=== PATIENT | female | born 1960 | race Caucasian/White ===

== ENCOUNTER 2021-04-28 08:05 | Day surgery (SDC) | payer BC ==
[~2021-04-28 08:05] MED LIST: Lactated Ringers 1,000 ML IV SCH; Sodium Chloride 0.9% 10 ML Syringe FLUSH PRN; Sodium Chloride 0.9% 2.5 ML Syringe FLUSH PRN; Sodium Chloride 0.9% 20 ML SDV IV PRN
[2021-04-28] MEDS ORDERED: ceFAZolin 2 GM in Premix Bag 1 BAG IV ONE (08:20)
[2021-04-28] MEDS ORDERED: fentaNYL 100 MCG/2 ML SDV IVPUSH PRN (08:29)
[2021-04-28] MEDS ORDERED: Albuterol 0.083% 2.5 MG/3 ML Neb Soln NEB PRN (08:29)
[2021-04-28] MEDS ORDERED: Naloxone 0.4 MG/ML SDV IVPUSH PRN (08:29)
[2021-04-28] MEDS ORDERED: Morphine 2 MG/ML SYRINGE IVPUSH PRN (08:29)
[2021-04-28] MEDS ORDERED: Ondansetron 4 MG/2 ML SDV IVPUSH PRN (08:29)
[2021-04-28] MEDS ORDERED: HYDROmorphone 1 MG/ML Syringe IVPUSH PRN (08:29)
[2021-04-28] MEDS ORDERED: Metoclopramide 10 MG/2 ML SDV IVPUSH PRN (08:29)
--- NOTE | 2021-04-28 08:31 | PCM.PREANE ---
Preanesthetic Assessment - Anesthesia/Transfusion/Family Hx Anesthesia History: Prior Anesthesia Without Reaction Transfusion History: No Prior Transfusion(s) - Review of Systems General: No Symptoms Pulmonary: No Symptoms Cardiovascular: No Symptoms Gastrointestinal: No Symptoms Neurological: No Symptoms Other: Reports: None - Physical Assessment NPO Status Date: 04/28/21 NPO Status Time: 00:00 Vital Signs: Last Vital Signs Temp 97.2 F 04/28/21 08:19 Pulse 72 04/28/21 08:19 Resp 14 04/28/21 08:19 BP 144/87 H 04/28/21 08:19 Pulse Ox 97 04/28/21 08:19 Height: 4 ft 11 in Weight: 132 lb ASA Class: 2 Mental Status: Alert & Oriented x3 Airway Class: Mallampati = 1 Dentition: Reports: Normal Dentition Thyro-Mental Finger Breadths: 3 Mouth Opening Finger Breadths: 3 ROM/Head Extension: Full Lungs: Clear to Auscultation, Normal Respiratory Effort Cardiovascular: Regular Rate, Regular Rhythm - Allergies Allergies/Adverse Reactions: Allergies Allergy/AdvReac Type Severity Reaction Status Date / Time No Known Allergies Allergy Verified 04/22/21 08:44 - Acknowledgements Anesthesia Type Planned: General Anesthesia Pt an Appropriate Candidate for the Planned Anesthesia: Yes Alternatives and Risks of Anesthesia Discussed w Pt/Guardian: Yes Pt/Guardian Understands and Agrees with Anesthesia Plan: Yes PreAnesthesia Questionnaire HEENT History: Reports: None Cardiovascular History: Reports: Hypertension Respiratory History: Reports: None Gastrointestinal History: Reports: Other (See Below) Other Gastrointestinal History: gallstones, occasional heartburn Genitourinary History: Reports: None 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: Musculoskeletal History: Reports: RA Neurological History: Reports: None Psychiatric History: Reports: None Endocrine/Metabolic History: Reports: Osteopenia Hematologic History: Reports: None Immunologic History: Reports: None Oncologic (Cancer) History: Reports: Breast Dermatologic History: Reports: None - Past Surgical History Head Surgeries/Procedures: Reports: None HEENT Surgical History: Reports: Tonsillectomy Cardiovascular Surgical History: Reports: None Respiratory Surgical History: Reports: None GI Surgical History: Reports: Colonoscopy Female Surgical History: Reports: Breast Biopsy, Breast Implant, Section Endocrine Surgical History: Reports: None Neurological Surgical History: Reports: None Musculoskeletal Surgical History: Reports: None Oncologic Surgical History: Reports: Biopsy of Breast Dermatological Surgical History: Reports: None - SUBSTANCE USE Tobacco Use Status *Q: Never Tobacco User Days Per Week of Alcohol Use: 7 Number of Drinks Per Day: 1 Total Drinks Per Week: 7 - HOME MEDS Home Medications: Home Meds Atenolol/Chlorthalidone [Atenolol-Chlorthalidone 50-25] 0.5 tab PO DAILY 04/22/21 [History] Calcium/D3/Mag Ox/Commission Clerk/Maurice/Zn [Caltrate+D3 Plus Mineral Minis] 1 tab PO DAILY 04/22/21 [History] Hydroxychloroquine Sulfate 300 mg PO DAILY 04/22/21 [History] - CURRENT (IN HOUSE) MEDS Current Meds: Current Medications Lactated Ringer's (Ringers, Lactated) 1,000 mls @ 125 mls/hr IV ASDIRECTED JOHAN Last Admin: 04/28/21 08:23 Dose: 125 mls/hr Documented by: Cefazolin Sodium/Dextrose 2 gm (/ Premix) 50 mls @ 100 mls/hr IV ONETIME ONE Stop: 04/28/21 08:49 Sodium Chloride (Sodium Chloride 0.9% 10 Ml Syringe) 10 ml FLUSH ASDIRECTED PRN PRN Reason: Keep Vein Open Sodium Chloride (Sodium Chloride 0.9% 2.5 Ml Syringe) 2.5 ml FLUSH ASDIRECTED PRN PRN Reason: Keep Vein Open Sodium Chloride (Sodium Chloride 0.9% 20 Ml Sdv) 10 ml IV ASDIRECTED PRN PRN Reason: IV Use
[2021-04-28] MEDS ORDERED: Midazolam 1 MG/ML 2 ML SDV ONE ×2 (08:58→09:07)
[2021-04-28] MEDS ORDERED: fentaNYL 100 MCG/2 ML SDV ONE ×2 (08:58→09:07)
[2021-04-28] MEDS ORDERED: Propofol 200 MG/20 ML SDV ONE ×2 (08:58→09:07)
[2021-04-28] MEDS ORDERED: Dexamethasone 4 MG/ML 5 ML MDV ONE (09:09)
[2021-04-28] MEDS ORDERED: Ondansetron 4 MG/2 ML SDV ONE (09:09)
[2021-04-28 09:42] LABS: CARBON DIOXIDE,CO2 28.8 mmol/L (21.0-32.0); POTASSIUM,K 3.4 mmol/L (3.5-5.1)
[2021-04-28] MEDS ORDERED: Heparin Sodium 100 Units/ML 3 ML Syringe ONE (09:51)
[2021-04-28] MEDS ORDERED: Bupivacaine 0.5% 10 ML SDV ONE (09:51)
[2021-04-28] MEDS ORDERED: Lidocaine 1% 20 ML MDV ONE (09:51)
[2021-04-28] MEDS ORDERED: Iopamidol 408 MG/ML 20 ML SDV ONE (09:52)
[2021-04-28] MEDS ORDERED: Octyl 2-Cyanoacrylate 1 Tube ONE (09:52)
[2021-04-28] MEDS ORDERED: ePHEDrine 50 MG/ML SDV ONE (10:30)
[2021-04-28] MEDS ORDERED: Ketorolac 30 MG/ML SDV ONE (10:44)
--- NOTE | 2021-04-28 11:10 | PCM.POSTAN ---
POST ANESTHESIA ASSESSMENT - MENTAL STATUS Mental Status: Alert, Oriented - VITAL SIGNS Vital Signs: Last Vital Signs Temp 97.2 F 04/28/21 08:19 Pulse 72 04/28/21 08:19 Resp 14 04/28/21 08:19 BP 144/87 H 04/28/21 08:19 Pulse Ox 97 04/28/21 08:19 - RESPIRATORY Respiratory Status: Respiratory Rate WNL, Airway Patent, O2 Saturation Stable - CARDIOVASCULAR CV Status: Pulse Rate WNL, Blood Pressure Stable - GASTROINTESTINAL GI Status: No Symptoms - POST OP HYDRATION Hydration Status: Adequate & Stable
--- NOTE | 2021-04-28 11:11 | PCM48HPAN ---
Post Anesthesia Note - EVALUATION WITHIN 48HRS OF ANESTHETIC Vital Signs in Normal Range: Yes Patient Participated in Evaluation: Yes Respiratory Function Stable: Yes Airway Patent: Yes Cardiovascular Function Stable: Yes Hydration Status Stable: Yes Pain Control Satisfactory: Yes Nausea and Vomiting Control Satisfactory: Yes Mental Status Recovered: Yes Vital Signs: Last Vital Signs Temp 97.2 F 04/28/21 08:19 Pulse 72 04/28/21 08:19 Resp 14 04/28/21 08:19 BP 144/87 H 04/28/21 08:19 Pulse Ox 97 04/28/21 08:19
--- NOTE | 2021-04-28 11:21 | PCM.OPNOTE ---
- General Post-Op/Procedure Note Date of Surgery/Procedure: 04/28/21 Operative Procedure(s): RIght internal jugular port a cath placement Findings: port a cath in right IJ Pre Op Diagnosis: Breast cancer Post-Op Diagnosis: Breast cancer Anesthesia Technique: General LMA Primary Surgeon: Jackie Aguilar Fluid Replacement, Intraop: 1,000 EBL in mLs: 10 Condition: Good
--- NOTE | 2021-04-28 12:14 | CR ---
Indication: Port catheter placement. Technique: Chest 1 view. Comparison: None. Findings/Impression: Cardiovascular and mediastinum: Heart size and vasculature are normal in caliber and appearance. Right-sided port catheter is in satisfactory position with the tip in the mid to lower SVC. Lungs and pleural space: Lungs are clear. No sign of infiltrate or mass. No sign of pleural effusion. No pneumothorax. Bones and soft tissues: No acute findings. Dictated by Curly Albarado MD @ 04/28/2021 12:13:30 PM (Electronically Signed)
--- NOTE | 2021-04-28 13:58 | CR ---
INDICATION: Port placement TECHNIQUE: Intraoperative C-arm fluoroscopy. IMPRESSION: Intraoperative C-arm fluoroscopy was provided. Fluoroscopy time 13.3 seconds. Two images were captured. Dictated by Celio Meehan MD @ 04/28/2021 1:57:56 PM (Electronically Signed)
--- NOTE | 2021-04-28 15:22 | OR ---
SURGEON: JACKIE AGUILAR MD DATE OF PROCEDURE: 04/28/2021 PREOPERATIVE DIAGNOSIS: Breast cancer. POSTOPERATIVE DIAGNOSIS: Breast cancer. PROCEDURE PERFORMED: Right internal jugular Port-A-Cath placement. PRIMARY SURGEON: Jackie Aguilar MD ANESTHESIA: General LMA. FLUIDS: 1000 mL crystalloid. ESTIMATED BLOOD LOSS: 10 mL. FINDINGS: Right internal jugular Port-A-Cath placed without difficulty. COMPLICATIONS: None. INDICATIONS: The patient is a 60-year-old female who presented to clinic with a new diagnosis of breast cancer. She was in need of a Port-A-Cath placement for chemotherapy. I explained the procedure, expected perioperative course, and the risks. She verbalized understanding and wishes to proceed. PROCEDURE IN DETAIL: The patient was brought in to the OR and placed on the OR table and in supine position. A time-out was completed verifying the patient's name, age, date of , allergies, and procedure to be performed. General LMA anesthesia was induced. A shoulder roll was placed under the patient's shoulders and both arms were tucked to the patient's side. An ultrasound was used to confirm the anatomy of the right side of the neck. The neck and chest were then prepped and draped in usual standard fashion. The patient was placed into Trendelenburg position. A sterile ultrasound probe was used to identify the right internal jugular vein. I anesthetized the area overlying the right internal jugular vein with a 1:1 mixture of 0.5% Marcaine plain and 1% lidocaine plain. I also anesthetized the Port-A-Cath site on the anterior chest wall as well as the tubing tract. Using ultrasound guidance, I placed a guide needle into the right internal jugular vein. A good return of venous blood was noted. A guidewire was placed down the vein into the superior vena cava. The placement of the guidewire was verified with C-arm. The guidewire was then secured to the drapes. I turned my attention to the right anterior chest wall. A 3 cm incision was made two fingerbreadths below the lateral right clavicle using a 15- blade. Cautery was used to dissect down to level subcutaneous fat. A subcutaneous pocket was then created for the Port-A-Cath device. I then tunneled the catheter tubing from the Port-A-Cath device site on the chest wall up to the neck. A vascular dilator and sheath were then used to dilate up the catheter tract under fluoroscopic guidance. The dilator and guidewire were removed. The catheter tubing was placed down the sheath into the superior vena cava. The sheath was peeled away. Using fluoroscopy, I guided the tip of the catheter into the distal SVC. The catheter tubing was accessed and I had a good return of venous blood. It was then flushed with injectable saline. The catheter tubing was trimmed to 25 cm and placed on the Port-A-Cath device. The port was placed into the chest wall. Again, I accessed the port with a Javeir needle and had good return of venous blood. The system was then flushed with normal saline. I secured the Port-A-Cath device inside the chest wall pocket with 2-0 Prolene sutures on either side of the Port-A-Cath device. The pocket was then closed with interrupted 3-0 Vicryl sutures in the subcutaneous fat and a running 4-0 Monocryl stitch in the skin. The insertion site on the neck was closed with interrupted 4-0 Monocryl suture. Dermabond was applied. I then accessed the catheter on the skin with a 1 inch Javier needle. A good return of venous blood was noted. I then locked the device with 5 mL of heparinized saline. The device was left accessed and sterile dressings were applied. The patient tolerated the procedure well and was taken to the PACU in stable condition. Postoperative chest x-ray showed no acute complications. DALLIN LOO /[id number]
== END 2021-04-28 12:29 | disposition home or self-care (01) ==
LOC: MW.SDS 08:05
PROVIDERS: ATTEND Surgery
DX: C50.912 Malignant neoplasm of unspecified site of left female breast (principal); I10 Essential (primary) hypertension; E78.00 Pure hypercholesterolemia, unspecified; M85.80 Other specified disorders of bone density and structure, unspecified site; M06.9 Rheumatoid arthritis, unspecified; N28.1 Cyst of kidney, acquired; Z79.899 Other long term (current) drug therapy; Z98.890 Other specified postprocedural states
CPT/HCPCS: 36415; 36561; 71045; 76000; 80053; 85025; A9270; J0690; J1100; J1885; J2250; J2405; J2704; J3010; J3490; J7120; 00532; C1788; J1642; Q9966

== ENCOUNTER 2021-06-17 06:05 | Day surgery (SDC) | payer BC ==
[2021-06-17] MEDS ORDERED: Bupivacaine 0.5% 10 ML SDV ONE (07:25)
[2021-06-17] MEDS ORDERED: Octyl 2-Cyanoacrylate 1 Tube ONE (07:25)
[2021-06-17] MEDS ORDERED: Iopamidol 408 MG/ML 20 ML SDV ONE (07:25)
[2021-06-17] MEDS ORDERED: Heparin Sodium 100 Units/ML 3 ML Syringe ONE (07:25)
[2021-06-17] MEDS ORDERED: Metoclopramide 10 MG/2 ML SDV IVPUSH PRN (07:33)
[2021-06-17] MEDS ORDERED: Albuterol 0.083% 2.5 MG/3 ML Neb Soln NEB PRN (07:33)
[2021-06-17] MEDS ORDERED: Naloxone 0.4 MG/ML SDV IVPUSH PRN (07:33)
[2021-06-17] MEDS ORDERED: fentaNYL 100 MCG/2 ML SDV IVPUSH PRN (07:33)
[2021-06-17] MEDS ORDERED: HYDROmorphone 1 MG/ML Syringe IVPUSH PRN (07:33)
[2021-06-17] MEDS ORDERED: Morphine 2 MG/ML SYRINGE IVPUSH PRN (07:33)
[2021-06-17] MEDS ORDERED: Ondansetron 4 MG/2 ML SDV IVPUSH PRN (07:33)
[2021-06-17] MEDS ORDERED: Dexmedetomidine 200 MCG/2 ML SDV ONE (07:39)
[2021-06-17] MEDS ORDERED: Propofol 200 MG/20 ML SDV ONE (07:40)
[2021-06-17] MEDS ORDERED: Sodium Chloride 0.9% 2.5 ML Syringe FLUSH PRN (07:45)
[2021-06-17] MEDS ORDERED: Sodium Chloride 0.9% 10 ML Syringe FLUSH PRN (07:45)
[2021-06-17] MEDS ORDERED: ceFAZolin 2 GM in Premix Bag 1 BAG IV ONE (07:45)
[2021-06-17] MEDS ORDERED: Sodium Chloride 0.9% 20 ML SDV IV PRN (07:45)
[2021-06-17] MEDS ORDERED: Lactated Ringers 1,000 ML IV SCH (07:45)
[2021-06-17] MEDS ORDERED: ePHEDrine 50 MG/ML SDV ONE (08:13)
== END 2021-06-17 09:39 | disposition home or self-care (01) ==
LOC: MW.SDS 06:05
PROVIDERS: ATTEND Surgery
DX: T82.514A Breakdown (mechanical) of infusion catheter, initial encounter (principal); C50.912 Malignant neoplasm of unspecified site of left female breast; F41.9 Anxiety disorder, unspecified; I10 Essential (primary) hypertension; G47.00 Insomnia, unspecified; E78.00 Pure hypercholesterolemia, unspecified; Z79.899 Other long term (current) drug therapy; Z98.890 Other specified postprocedural states; Z01.812 Encounter for preprocedural laboratory examination; Z20.822 Contact with and (suspected) exposure to COVID-19
CPT/HCPCS: 36576; 87635; A9270; J0690; J1642; J3490; 00532; J2704; Q9966; U0002

== ENCOUNTER 2022-01-23 11:02 | Day surgery (SDC) | payer BC ==
[~2022-01-23 11:02] MED LIST changes: -Lactated Ringers 1,000 ML IV SCH; +ceFAZolin 1 GM in Premix Bag 1 BAG IV ONE
[2022-01-23] MEDS ORDERED: Lactated Ringers 1,000 ML IV SCH (11:45)
[2022-01-23] MEDS ORDERED: Naloxone 0.4 MG/ML SDV IVPUSH PRN (12:08)
[2022-01-23] MEDS ORDERED: HYDROmorphone 1 MG/ML Syringe IVPUSH PRN (12:08)
[2022-01-23] MEDS ORDERED: fentaNYL 50 MCG/ML SDV IVPUSH PRN (12:08)
[2022-01-23] MEDS ORDERED: Metoclopramide 10 MG/2 ML SDV IVPUSH PRN (12:08)
[2022-01-23] MEDS ORDERED: Ondansetron 4 MG/2 ML SDV IVPUSH PRN (12:08)
[2022-01-23] MEDS ORDERED: Albuterol 0.083% 2.5 MG/3 ML Neb Soln NEB PRN (12:08)
[2022-01-23] MEDS ORDERED: Propofol 200 MG/20 ML SDV ONE (12:39)
[2022-01-23] MEDS ORDERED: fentaNYL 100 MCG/2 ML SDV ONE (12:39)
[2022-01-23] MEDS ORDERED: Lidocaine 2% 5 ML SDV ONE (12:39)
[2022-01-23] MEDS ORDERED: Bupivacaine 0.5% 30 ML SDV ONE (13:44)
[2022-01-23] MEDS ORDERED: Lidocaine 1% 20 ML MDV ONE (13:44)
== END 2022-01-23 15:25 | disposition home or self-care (01) ==
LOC: MW.SDS 11:02
PROVIDERS: ATTEND Surgery
DX: Z45.2 Encounter for adjustment and management of vascular access device (principal); F41.8 Other specified anxiety disorders; C50.912 Malignant neoplasm of unspecified site of left female breast; I10 Essential (primary) hypertension; K60.2 Anal fissure, unspecified; G47.00 Insomnia, unspecified; M85.80 Other specified disorders of bone density and structure, unspecified site; Z79.899 Other long term (current) drug therapy; Z98.890 Other specified postprocedural states
CPT/HCPCS: 36590; J2704; J3010; J3490; J7120